=== PATIENT | female | born 1985 | race Caucasian/White ===

== ENCOUNTER 2017-04-24 20:10 | Emergency (ER) | payer MEDICAID ==
[~2017-04-24] VITALS: Ht 154.9 cm; Wt 64.2 kg
[2017-04-24 20:15] VITALS: Ht 154.9 cm; Wt 64.2 kg
[2017-04-24 21:08] LABS: URINE BLOOD (Dip) POC Trace-lysed (NEGATIVE)
[2017-04-24] MEDS ORDERED: CEPH-443 PO (21:21)
[2017-04-24] MEDS ORDERED: PHEN-538 PO (21:21)
--- NOTE | 2017-04-27 01:57 | ERD ---
ER Documentation Chief Complaint Chief Complaint left abd pain x 3 months, worse today with painful urination HPI Patient is a 31-year-old female presenting to the emergency department with complaints of left lower quadrant and left suprapubic pain and radiation to her low back, intermittently for the past 3 months. Her LMP was 04-04-2017. She has been eating well. She does have history of UTIs in the past. She denies hematuria, fevers, nausea, vomiting, and diarrhea. ROS All systems reviewed and are negative except as per history of present illness. Medications Home Meds Active Scripts Phenazopyridine Hcl* (Pyridium*) 200 Mg Tab, 200 MG PO TID Y for URINARY PAIN, # 6 TAB Prov:DAVID HILLIARD PA-C 04/24/17 Cephalexin* (Keflex*) 500 Mg Capsule, 500 MG PO TID for 5 Days, #15 CAP Prov:DAVID HILLIARD PA-C 04/24/17 Allergies Allergies: Coded Allergies: No Known Allergy (Unverified , 04/24/17) PMhx/Soc Medical and Surgical Hx: pt denies Medical Hx, pt denies Surgical Hx History of Surgery: No Anesthesia Reaction: No Hx Neurological Disorder: No Hx Respiratory Disorders: No Hx Cardiac Disorders: No Hx Psychiatric Problems: No Hx Miscellaneous Medical Probl: No Hx Alcohol Use: No Hx Substance Use: No Hx Tobacco Use: No Smoking Status: Never smoker Physical Exam Vitals Vital Signs Date Time Temp Pulse Resp B/P Pulse Ox O2 Delivery O2 Flow Rate FiO2 04/24/17 20:15 98.0 87 20 119/85 98 Physical Exam Const: Nontoxic, well-appearing female in no acute distress. Head: Atraumatic Eyes: Normal Conjunctiva ENT: Normal External Ears, Nose and Mouth. Neck: Full range of motion..~ No meningismus. Resp: Clear to auscultation bilaterally Cardio: Regular rate and rhythm, no murmurs Abd: Soft, non tender, non distended. Normal bowel sounds. Mild left-sided suprapubic tenderness to palpation. Skin: No petechiae or rashes Back: No midline or flank tenderness. No CVA tenderness. Ext: No cyanosis, or edema Neur: Awake and alert Psych: Normal Mood and Affect Results 24 hrs Laboratory Tests Test 04/24/17 21:06 Bedside Urine pH (LAB) 6.0 Bedside Urine Protein (LAB) Negative Bedside Urine Glucose (UA) Negative Bedside Urine Ketones (LAB) Negative Bedside Urine Blood Trace-lysed Bedside Urine Nitrite (LAB) Negative Bedside Urine Leukocyte Esterase (L 1+ Procedures/MDM 31-year-old female presenting to the emergency department of uncomplicated urinary tract infection. Low suspicion for pyelonephritis, sepsis, or other emergencies. The patient is stable for discharge with a prescription for antibiotics. She agreed with the discharge plan and diagnosis. No evidence of life-threatening pathology at time of discharge. Pt/family in agreement with discharge plan/diagnosis. Pt/family advised to return immediately with any new or worsening symptoms. Follow-up with primary care physician within the next 1-2 days. Disclaimer: Inadvertent spelling and grammatical errors are likely due to EHR/ dictation software use and do not reflect on the overall quality of patient care. Also, please note that the electronic time recorded on this note does not necessarily reflect the actual time of the patient encounter. Departure Diagnosis: Primary Impression: Urinary tract infection Urinary tract infection type: acute cystitis Hematuria presence: without hematuria Qualified Code: N30.00 - Acute cystitis without hematuria Condition: Fair Patient Instructions: Understanding Urinary Tract Infections (UTIs) [facility] Usted se chandra hecho un examen mdico de control que le indica que no est en tho condicin que requiera tratamiento urgente en el Departamento de Emergencia. Un estudio ms profundo y el tratamiento de cintron condicin pueden esperar sin ningn riesgo hasta que usted sea atendida/o en el consultorio de cintron mdico o tho cl timbo. Es responsabilidad suya arreglar tho alfa para el seguimiento del kalli. MANEJO DE CONDICIONES NO URGENTES EN EL FUTURO 1) Si usted tiene un mdico de atencin primaria: Usted debera llamar a cintron mdico de atencin primaria antes de venir al departamento de emergencia. Despus de las horas de consultorio, cintron doctor o cintron asociado/a est disponible por telfono. El mdico o enfermero de isaac en el servicio telefnico puede asesorarle por carmelita medio para atender el problema, o kalli contrario se puede programar tho alfa. 2) Si usted no tiene un mdico de atencin primaria: Llame al mdico o clnica de referencia que aparece abajo rebel las horas de consultorio para hacer tho alfa para que le vean. CLINICAS: [facility] [phone] [facility] [phone]. [facility] [phone] [facility]. [place] [phone] [facility] [phone] [facility]. [phone] [address] Additional Instructions: Call your primary care doctor TOMORROW for an appointment during the next 1-2 days.See the doctor sooner or return here if your condition worsens before your appointment time. DAVID HILLIARD PA-C Apr 27, 2017 01:57
== END 2017-04-24 21:48 | disposition home or self-care (01) ==
LOC: FTE 20:10
DX: N30.00 Acute cystitis without hematuria (principal)
CPT/HCPCS: 81003; Z7502; 99283